=== PATIENT | female | born 1965 | race Caucasian/White ===

== ENCOUNTER 2017-05-16 12:46 | Day surgery (SDC) | payer OTHER ==
[2017-05-16] MEDS ORDERED: PROPOFOL 40 ML (14:33)
== END 2017-05-16 15:45 | disposition home or self-care (01) ==
LOC: GIL 12:46
DX: Z12.11 Encounter for screening for malignant neoplasm of colon (principal); K64.8 Other hemorrhoids; K57.90 Diverticulosis of intestine, part unspecified, without perforation or abscess without bleeding
CPT/HCPCS: 45378